=== PATIENT | male | born 1980 | race Caucasian/White ===

== ENCOUNTER 2024-02-09 09:50 | Outpatient (CLI) | payer BC, SELFPAY ==
--- NOTE | ~2024-02-09 | US_ITS ---
US scrotum doppler INDICATION: Left testicular swelling. TECHNIQUE: Testicular sonogram utilizing grayscale and color Doppler FINDINGS: The testes are normal in size and appearance. No focal lesions are seen. The right testes measures 5.7 x 2.7 x 3.2 cm centimeters, and the left testis measures 5.6 x 2.2 x 3.1 cm cm. There is normal vascular flow to both testes. The right and left epididymides appear normal. There is a right varicocele. IMPRESSION: 1. Right varicocele. Reviewed, dictated and finalized at location A. IMPRESSION: 1. Right varicocele.
== END 2024-02-09 09:51 ==
DX: N50.812 Left testicular pain (principal); N43.3 Hydrocele, unspecified
CPT/HCPCS: 76870; 93976

== ENCOUNTER 2024-05-12 09:11 | Outpatient (CLI) | payer BC, SELFPAY ==
--- NOTE | ~2024-05-12 | US_ITS ---
EXAMINATION: US abdomen limited DATE: 05/12/2024 09:40 INDICATION: Right varicocele on prior scrotal ultrasound TECHNIQUE: Multiple grayscale and Doppler ultrasound images of the abdomen in the region of the mid a alejandra and inferior vena cava were obtained. COMPARISON: None FINDINGS: Visualized aorta is normal in caliber. Visualized mid inferior vena cava is also normal. Right kidney demonstrates normal contour and axis with no hydronephrosis. No evident retroperitoneal lymphadenopa thy or other abnormal masses identified in the central abdomen. IMPRESSION: 1. No evident retroperitoneal lymphadenopathy or other abnormal masses in the region of the outflow o f the right gonadal vein. Reviewed, dictated and finalized at location B. IMPRESSION: 1. No evident retroperitoneal lymphadenopathy or other abnormal masses in the r egion of the outflow of the right gonadal vein.
== END 2024-05-12 09:12 ==
LOC: MICIMG 09:13
PROVIDERS: PCP Urology; Visit Provider Urology
DX: I86.1 Scrotal varices (principal)
CPT/HCPCS: 76705